=== PATIENT | female | born 1965 | race Caucasian/White ===

== ENCOUNTER 2019-09-11 13:30 | Emergency (ER) | payer OTHER ==
[~2019-09-11] VITALS: Ht 152.4 cm; Wt 88.5 kg
[~2019-09-11 13:30] MED LIST: DYAZIDE PO; IBUP800T48 PO
[2019-09-11 13:37] VITALS: Ht 152.4 cm; Wt 88.5 kg
[2019-09-11] MEDS ORDERED: ASPIRIN 325 MG TAB PO STA (14:07)
[2019-09-11] MEDS ORDERED: KETOROLAC 30 MG INJ IV STA (14:31)
[2019-09-11 16:42] VITALS: BP 125/86; PULSE 61; RESP 17
== END 2019-09-11 16:43 | disposition home or self-care (01) ==
LOC: E/R 13:30
DX: M94.0 Chondrocostal junction syndrome [Tietze] (principal); R40.2142 Coma scale, eyes open, spontaneous, at arrival to emergency department; R40.2362 Coma scale, best motor response, obeys commands, at arrival to emergency department; R40.2252 Coma scale, best verbal response, oriented, at arrival to emergency department; I10 Essential (primary) hypertension
CPT/HCPCS: 36415; 71045; 80053; 82550; 82553; 83690; 83880; 84484; 85025; 85610; 85730; 93005; 96374; 99285; J1885